=== PATIENT | female | born 1960 | race Caucasian/White ===

== ENCOUNTER 2018-09-12 10:53 | Emergency (ER) | payer BC, OTHER ==
[~2018-09-12] VITALS: Ht 160 cm; Wt 88.5 kg
[2018-09-12 10:53] VITALS: BP_SYST 153
[~2018-09-12 10:53] MED LIST: FLA250 PO; LEVO125T8 PO; LEVO500T20 PO; SACC250C3 PO
--- NOTE | 2018-09-12 10:55 | NUR ---
BROUGHT BACK TO BED #6 AND TRIAGED. REPORT GIVEN TO MARYLU
--- NOTE | 2018-09-12 11:01 | NUR ---
DR DAVISON AT BEDSIDE FOR EVALUATION
[2018-09-12 11:15] VITALS: BP_SYST 131
--- NOTE | 2018-09-12 11:15 | NUR ---
Patient given written and verbal discharge instructions and verbalizes understanding. ER MD discussed with patient the results and treatment provided. Patient in stable condition. ID arm band removed Rx of LEVAQUIN given. Patient educated on pain management and to follow up with PMD. Pain Scale 0/10. Opportunity for questions provided and answered. Medication side effect fact sheet provided.
== END 2018-09-12 11:15 | disposition still patient (30) ==
LOC: SED 10:53
DX: H66.41 Suppurative otitis media, unspecified, right ear (principal); I48.91 Unspecified atrial fibrillation; Z90.49 Acquired absence of other specified parts of digestive tract; Z88.0 Allergy status to penicillin; Z88.6 Allergy status to analgesic agent; Z91.011 Allergy to milk products; Z79.899 Other long term (current) drug therapy
CPT/HCPCS: 99283

== ENCOUNTER 2019-02-02 19:20 | Inpatient (IN) | payer BC, OTHER ==
[~2019-02-02] VITALS: Ht 161.3 cm; Wt 93.5 kg
[2019-02-02 19:28] VITALS: BP_SYST 128
[2019-02-02] MEDS ORDERED: NACL 0.9% 1,000 ML IV ONE (19:55)
[2019-02-02] MEDS ORDERED: SUCR1TAB78 PO (20:01)
[2019-02-02] MEDS ORDERED: METO25TA3 PO (20:01)
[2019-02-02] MEDS ORDERED: LEVO112T2 PO (20:01)
[2019-02-02] MEDS ORDERED: APIX5TAB4 PO (20:01)
[2019-02-02 20:51] LABS: BASOPHILS % (AUTO) 0.4 % (0.0-2.0); EOSINOPHILS # (AUTO) 0.5 K/uL (0.0-0.4); EOSINOPHILS % (AUTO) 5.1 % (0.0-4.0); HEMATOCRIT 38.2 % (36-48); HEMOGLOBIN 13.1 g/dL (12.0-16.0); LYMPHOCYTES # (AUTO) 1.7 K/uL (1.0-5.5); LYMPHOCYTES % (AUTO) 16.9 % (20.5-51.5); MEAN CORPUSCULAR HEMOGLOBIN 31 pg (27-31); MEAN CORPUSCULAR HGB CONC 34 % (32-36); MEAN CORPUSCULAR VOLUME 90 fL (79.0-98.0); MONOCYTES # (AUTO) 0.7 K/uL (0.0-1.0); MONOCYTES % (AUTO) 7.4 % (1.7-9.3); NEUTROPHILS # (AUTO) 7.1 K/uL (1.8-7.7); NEUTROPHILS % (AUTO) 70.2 % (40.0-70.0); PLATELET COUNT (AUTO) 210 K/uL (130-430); RED BLOOD CELL COUNT(AUTO) 4.25 MIL/uL (4.2-6.2); RED CELL DISTRIBUTION WIDTH 13.2 % (9.0-15.0); WHITE BLOOD COUNT (AUTO) 10.1 K/uL (4.8-10.8)
[2019-02-02] MEDS ORDERED: PRO40 PO (20:59)
[2019-02-02 21:03] LABS: INR 0.9 (0.8-1.2); PROTHROMBIN TIME 9.5 SECS (9.5-12.5)
[2019-02-02 21:14] LABS: CALCIUM 8.1 mg/dL (8.4-11.0); CREATININE 0.82 mg/dL (0.55-1.30); POTASSIUM 3.8 mmol/L (3.5-5.1); TOTAL BILIRUBIN 0.7 mg/dL (0.0-1.0)
[2019-02-02 21:15] LABS: ALBUMIN 3.1 g/dL (3.4-4.8)
[2019-02-02] MEDS ORDERED: CLOPIDOGREL BISULFATE 75 MG TABLET PO ONE (21:30)
[2019-02-02 22:20] VITALS: BP_SYST 118
[2019-02-03 00:44] VITALS: BP_SYST 109
[2019-02-03 00:46] VITALS: BP_SYST 112
[2019-02-03] MEDS: LEVOTHYROXINE SODIUM 0.112 MG TABLET PO SCH (06:08)
[2019-02-03] MEDS: PANTOPRAZOLE SODIUM 40 MG TAB PO SCH (06:08)
[2019-02-03 07:26] LABS: BASOPHILS # (AUTO) 0.1 K/uL (0.0-0.2); BASOPHILS % (AUTO) 0.8 % (0.0-2.0); EOSINOPHILS # (AUTO) 0.5 K/uL (0.0-0.4); EOSINOPHILS % (AUTO) 6.6 % (0.0-4.0); HEMATOCRIT 37.5 % (36-48); HEMOGLOBIN 12.6 g/dL (12.0-16.0); LYMPHOCYTES # (AUTO) 2.1 K/uL (1.0-5.5); LYMPHOCYTES % (AUTO) 25.7 % (20.5-51.5); MEAN CORPUSCULAR HEMOGLOBIN 30 pg (27-31); MEAN CORPUSCULAR HGB CONC 34 % (32-36); MEAN CORPUSCULAR VOLUME 90 fL (79.0-98.0); MONOCYTES # (AUTO) 0.6 K/uL (0.0-1.0); MONOCYTES % (AUTO) 7.1 % (1.7-9.3); NEUTROPHILS # (AUTO) 4.9 K/uL (1.8-7.7); NEUTROPHILS % (AUTO) 59.8 % (40.0-70.0); PLATELET COUNT (AUTO) 213 K/uL (130-430); RED BLOOD CELL COUNT(AUTO) 4.18 MIL/uL (4.2-6.2); RED CELL DISTRIBUTION WIDTH 13.4 % (9.0-15.0); WHITE BLOOD COUNT (AUTO) 8.2 K/uL (4.8-10.8)
[2019-02-03 08:00] VITALS: BP_SYST 122
[2019-02-03 08:09] LABS: ALBUMIN 2.9 g/dL (3.4-4.8); CREATININE 0.7 mg/dL (0.55-1.30); FREE T4 (FREE THYROXINE) 0.8 ng/dl (0.8-1.5); POTASSIUM 3.7 mmol/L (3.5-5.1); THYROID STIMULATING HORMONE 11.56 uIu/mL (0.36-3.74); TOTAL BILIRUBIN 0.7 mg/dL (0.0-1.0)
[2019-02-03] MEDS: METOPROLOL SUCCINATE 25 MG TAB.SR.24H (TOPROL XL) PO SCH (09:00)
[2019-02-03] MEDS: SUCRALFATE 1 GM TABLET PO SCH ×2 (10:42→20:29)
[2019-02-03] MEDS: APIXABAN 2.5 MG TABLET PO SCH ×2 (10:44→20:31)
[2019-02-03 11:28] VITALS: BP_SYST 108
[2019-02-03 15:26] VITALS: BP_SYST 106
[2019-02-03 20:00] VITALS: BP_SYST 109
[2019-02-04 00:30] VITALS: BP_SYST 106
[2019-02-04] MEDS: PANTOPRAZOLE SODIUM 40 MG TAB PO SCH (06:00)
[2019-02-04] MEDS: LEVOTHYROXINE SODIUM 0.112 MG TABLET PO SCH (06:00)
[2019-02-04 07:40] VITALS: BP_SYST 115
[2019-02-04] MEDS: METOPROLOL SUCCINATE 25 MG TAB.SR.24H (TOPROL XL) PO SCH (09:00)
[2019-02-04] MEDS: SUCRALFATE 1 GM TABLET PO SCH (09:14)
[2019-02-04] MEDS: APIXABAN 2.5 MG TABLET PO SCH (09:15)
[2019-02-04 11:29] VITALS: BP_SYST 121
[2019-02-04] MEDS ORDERED: FLUT16SP16 NS (13:01)
== END 2019-02-04 13:41 | disposition home or self-care (01) | DRG 312 ==
LOC: SED 19:20 → STU 21:37
PROVIDERS: ADMIT Internal Medicine; ATTEND Internal Medicine
DX: R55 Syncope and collapse (principal); E66.9 Obesity, unspecified; K21.9 Gastro-esophageal reflux disease without esophagitis; I48.0 Paroxysmal atrial fibrillation; R79.89 Other specified abnormal findings of blood chemistry; E03.9 Hypothyroidism, unspecified; J32.9 Chronic sinusitis, unspecified; I10 Essential (primary) hypertension; Z90.49 Acquired absence of other specified parts of digestive tract; Z86.73 Personal history of transient ischemic attack (TIA), and cerebral infarction without residual deficits; Z68.35 Body mass index [BMI] 35.0-35.9, adult; Z88.0 Allergy status to penicillin; Z88.6 Allergy status to analgesic agent; Z88.8 Allergy status to other drugs, medicaments and biological substances; Z91.011 Allergy to milk products; Z79.899 Other long term (current) drug therapy
CPT/HCPCS: 36415; 70450-TC; 70551; 71045; 80053; 82962; 83735-TC; 84439; 84443-TC; 84484; 85025; 85610-TC; 85730-TC; 87081; 93005; 93306; 99285; G0378; J7030

== ENCOUNTER 2019-07-13 14:52 | Emergency (ER) | payer BC, OTHER ==
[~2019-07-13] VITALS: Ht 160 cm; Wt 98.4 kg
[~2019-07-13 14:52] MED LIST changes: +APIX5TAB4 PO; -FLA250 PO; +FLUT16SP16 NS; +LEVO112T2 PO; -LEVO125T8 PO; -LEVO500T20 PO; +METO25TA3 PO; +PRO40 PO; -SACC250C3 PO; +SUCR1TAB78 PO
--- NOTE | 2019-07-13 14:55 | NUR ---
ER Dr. CROSS at bedside examining patient.
[2019-07-13] MEDS ORDERED: NACL 0.9% 1,000 ML IV ONE (14:56)
[2019-07-13] MEDS ORDERED: MORPHINE 4 MG/ML INJ. SYRINGE IVP ONE (15:00)
[2019-07-13] MEDS ORDERED: ONDANSETRON HCL 4 MG/2 ML VIAL IVP ONE (15:00)
--- NOTE | 2019-07-13 15:00 | NUR ---
PATIENT TO ER #4
--- NOTE | 2019-07-13 15:00 | NUR ---
ASSUMED CARE OF PT C/O LEFT SHOULDER PAIN AFTER TRIPPING AND FALLING ONTO IT. PT ALSO REPORTS LEFT KNEE PAIN. PT IS AAO AND IS AMBULATORY.
[2019-07-13 15:24] VITALS: BP_SYST 117
--- NOTE | 2019-07-13 15:30 | NUR ---
PORTABLE XRAY DONE AT BEDSIDE.
[2019-07-13 15:34] LABS: CALCIUM 8.7 mg/dL (8.4-11.0); CREATININE 1.57 mg/dL (0.55-1.30); POTASSIUM 3.8 mmol/L (3.5-5.1)
[2019-07-13 15:35] LABS: BASOPHILS # (AUTO) 0.1 K/uL (0.0-0.2); BASOPHILS % (AUTO) 0.9 % (0.0-2.0); EOSINOPHILS # (AUTO) 0.2 K/uL (0.0-0.4); HEMATOCRIT 42.3 % (36-48); LYMPHOCYTES # (AUTO) 2.2 K/uL (1.0-5.5); LYMPHOCYTES % (AUTO) 20.4 % (20.5-51.5); MEAN CORPUSCULAR HEMOGLOBIN 30 pg (27-31); MEAN CORPUSCULAR HGB CONC 33 % (32-36); MEAN CORPUSCULAR VOLUME 90 fL (79.0-98.0); MONOCYTES # (AUTO) 0.7 K/uL (0.0-1.0); MONOCYTES % (AUTO) 6.5 % (1.7-9.3); NEUTROPHILS # (AUTO) 7.4 K/uL (1.8-7.7); NEUTROPHILS % (AUTO) 70.2 % (40.0-70.0); PLATELET COUNT (AUTO) 246 K/uL (130-430); RED CELL DISTRIBUTION WIDTH 14.6 % (9.0-15.0); WHITE BLOOD COUNT (AUTO) 10.6 K/uL (4.8-10.8)
[2019-07-13 15:38] LABS: INR 1.1 (0.8-1.2); PROTHROMBIN TIME 10.6 SECS (9.5-12.5)
[2019-07-13 15:39] LABS: ALBUMIN 4.1 g/dL (3.4-4.8); TOTAL BILIRUBIN 1.8 mg/dL (0.0-1.0)
--- NOTE | 2019-07-13 15:50 | NUR ---
XRAY DONE A BEDSIDE
--- NOTE | 2019-07-13 16:30 | NUR ---
Patient given written and verbal discharge instructions and verbalizes understanding. DR. TAY MCFARLAND MD discussed with patient the results and treatment provided. Patient in stable condition. ID arm band removed. IV catheter removed intact and dressing applied, no active bleeding. Rx of TYLENOL #3 given. Patient educated on pain management and to follow up with PMD. Pain Scale 2/10. Opportunity for questions provided and answered. Medication side effect fact sheet provided.
== END 2019-07-13 16:30 | disposition home or self-care (01) ==
LOC: SED 14:52
DX: S42.292A Other displaced fracture of upper end of left humerus, initial encounter for closed fracture (principal); S80.02XA Contusion of left knee, initial encounter; W01.0XXA Fall on same level from slipping, tripping and stumbling without subsequent striking against object, initial encounter; Y93.89 Activity, other specified; Y92.89 Other specified places as the place of occurrence of the external cause; Y99.8 Other external cause status; I48.91 Unspecified atrial fibrillation; Z79.899 Other long term (current) drug therapy; Z88.0 Allergy status to penicillin; Z88.6 Allergy status to analgesic agent; Z88.1 Allergy status to other antibiotic agents; Z91.040 Latex allergy status; Z91.011 Allergy to milk products
CPT/HCPCS: 29105; 36415; 73030; 73060; 73564; 80053; 85025; 85610; 85730; 96374; 96375; 99284; J2270; J2405; J7030